=== PATIENT | female | born 1980 | race Caucasian/White ===

== ENCOUNTER 2022-05-15 18:52 | Emergency (ER) | payer SELFPAY ==
[~2022-05-15] VITALS: Ht 165.1 cm; Wt 106.6 kg
[2022-05-15] MEDS ORDERED: FLUO20CA36 PO (22:03)
[2022-05-15] MEDS ORDERED: BUME2TAB7 PO (22:03)
[2022-05-15] MEDS ORDERED: LAMO150T6 PO (22:03)
[2022-05-15] MEDS ORDERED: DILT-32 PO (22:03)
[2022-05-15] MEDS ORDERED: HYDROCODONE/APAP 10-325 MG TABLET PO ONE (22:30)
[2022-05-15] MEDS ORDERED: ONDANSETRON ODT 4 MG TAB.RAPDIS SL ONE (22:30)
[2022-05-15 22:37] LABS: HEMATOCRIT 36.2 % (31.2-41.9); MEAN CORPUSCULAR HEMOGLOBIN 24.6 uug (24.7-32.8); MEAN CORPUSCULAR VOLUME 76.8 fL (75.5-95.3); PLATELET COUNT (AUTO) 219 K/uL (179-408)
[2022-05-15] MEDS ORDERED: HYDROCODONE/APAP 10-325 MG TABLET ONE (22:39)
[2022-05-15] MEDS ORDERED: ONDANSETRON ODT 4 MG TAB.RAPDIS ONE (22:39)
[2022-05-15 22:45] LABS: POTASSIUM 3.4 mmol/L (3.5-5.1)
[2022-05-15 22:51] LABS: BILIRUBIN,TOTAL 0.5 mg/dL (0.2-1.0); TOTAL PROTEIN, SERUM 7.8 g/dL (6.4-8.2)
[2022-05-15] MEDS ORDERED: HYDR-4209 PO (23:32)
[2022-05-15 23:39] VITALS: BP 118/75
--- NOTE | 2022-05-15 23:39 | NUR ---
Patient discharged to home in stable condition with Taxi taking patient home. Written and verbal after care instructions given. Patient verbalizes understanding of instructions. Stressed follow up or return to ER for worsening s/s.
== END 2022-05-15 23:40 | disposition home or self-care (01) ==
LOC: ER 18:57
DX: M79.661 Pain in right lower leg (principal); S80.11XA Contusion of right lower leg, initial encounter; X58.XXXA Exposure to other specified factors, initial encounter; Y92.89 Other specified places as the place of occurrence of the external cause; R53.83 Other fatigue; Z79.899 Other long term (current) drug therapy; R22.2 Localized swelling, mass and lump, trunk
CPT/HCPCS: 36415; 85025; A4663; Q0162